=== PATIENT | female | born 1995 | race Caucasian/White ===

== ENCOUNTER 2024-10-04 12:19 | Outpatient (OUT) | payer BC, SELFPAY ==
[2024-10-04 12:50] LABS: D Dimer <0.19 mg/L FEU (<=0.59)
== END 2024-10-04 12:20 | disposition home or self-care (01) ==
LOC: LAB 12:24
PROVIDERS: PCP Nurse Practitioner; Visit Provider Nurse Practitioner
DX: M79.669 Pain in unspecified lower leg (principal)
CPT/HCPCS: 36415; 85378